=== PATIENT | male | born 1965 | race Caucasian/White ===

== ENCOUNTER 2016-07-17 16:23 | Emergency (ER) | payer OTHER ==
[2016-07-17 16:28] VITALS: BP 126/95; PULSE 80; RESP 20; TEMP 98.4; O2SAT 94
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
== END 2016-07-17 17:01 | disposition home or self-care (01) ==
DX: K08.89 Other specified disorders of teeth and supporting structures (principal)